=== PATIENT | male | born 1935 | race Caucasian/White ===

== ENCOUNTER 2017-04-05 19:58 | Emergency (ER) | payer MEDICARE ==
[2017-04-05] MEDS ORDERED: ACETAMINOPHEN TAB 500 MG TAB PO STA (21:05)
[2017-04-05] MEDS ORDERED: OSELTAMIVIR 75 MG CAP PO STA (21:51)
--- NOTE | 2017-04-05 22:08 | ED ---
General Adult HPI - General Chief complaint: Fever Stated complaint: Cough Time Seen by Provider: 04/05/17 20:25 Source: patient, family, RN notes reviewed Mode of arrival: ambulatory Limitations: no limitations - History of Present Illness Initial comments: Chief complaint and history of present illness is 89-year-old male here with his . The patient was sent in by his family doctor to be checked for the flu. The patient reports that for several days he had a sore throat and muscle aches pains sweats and fever for past 2 days. No nausea no vomiting - Related Data Home Medications Medication Instructions Recorded Confirmed Dapsone 50 mg PO DAILY 04/05/17 04/05/17 Levothyroxine Sodium [Synthroid] 50 mcg PO DAILY 04/05/17 04/05/17 Previous Rx's Medication Instructions Recorded Oseltamivir [Tamiflu] 75 mg PO Q12HR #10 cap 04/05/17 Allergies Allergy/AdvReac Type Severity Reaction Status Date / Time No Known Allergies Allergy Verified 04/05/17 20:21 Review of Systems ROS Statement: Those systems with pertinent positive or pertinent negative responses have been documented in the HPI. Review of systems. The patient did get a flu shot this year. He reports he has flu type symptoms for the past 2-3 days but a fever and chills for the past 2. Otherwise no chest pain no shortness of breath no GI/ problems no neuro deficits. All systems are reviewed. Past medical processing significant for GERD, and hypothyroidism. Surgeries include carpal tunnel surgery and back surgery. The patient nonsmoker nondrinker. Denies any ALLERGIES. He is intolerant to gluten. He takes medications for that. ROS Other: All systems not noted in ROS Statement are negative. Past Medical History Past Medical History: GERD/Reflux, Thyroid Disorder History of Any Multi-Drug Resistant Organisms: None Reported Additional Past Surgical History / Comment(s): back surgery, carpal tunnel Past Psychological History: No Psychological Hx Reported Smoking Status: Never smoker Past Alcohol Use History: None Reported Past Drug Use History: None Reported General Exam - General Exam Comments Initial Comments: General: The patient is awake and alert, here because of flu symptoms. Worse the past 2 days. Muscle aches and pains fever 101.6 dry cough. Vital signs shows temperature 101.6 pulse 83 respiratory rate 22 pulse ox 94% in room air blood pressure 131/66 Eye: Pupils are equal, round and reactive to light, extra-ocular movements are intact ; there is normal conjunctiva bilaterally. No signs of icterus. Ears, nose, mouth and throat: There are moist mucous membranes and no oral lesions. Neck: The neck is supple, Cardiovascular: There is a regular rate and rhythm. No murmur, rub or gallop is appreciated. Respiratory: Lungs are clear to auscultation, respirations are non-labored, breath sounds are equal. No wheezes, stridor, rales, or rhonchi. Complains of dry cough. Chest wall pain from coughing. Gastrointestinal: Soft, non-distended, non-tender abdomen without masses or organomegaly noted. There is no rebound or guarding present. No nausea no vomiting no diarrhea. Back: There is no tenderness to palpation in the midline. There is no obvious deformity. No rashes noted. Musculoskeletal: Normal, full range of motion upper and lower extremities. Neurological: No complaint of weakness or dizziness . Skin: Skin is warm and dry and no rashes or lesions are noted. Limitations: no limitations Course Vital Signs 04/05/17 20:06 Temperature 101.6 F H Pulse Rate 83 Respiratory 22 Rate Blood Pressure 131/66 O2 Sat by Pulse 94 L Oximetry Medical Decision Making - Medical Decision Making Medical decision making; is an 81-year-old male here with complaints of flu- type symptoms. Flu test was positive for influenza B. Chest x-ray was done and reviewed by radiologist's his final impression is; no active cardiopulmonary disease. As read by Dr. Sanchez. Due to the fact the patient has had a fever and chills most likely pain for 2 days. He will be continued on Tamiflu 75 mg twice a day for 5 days. Advised to use Tylenol or ibuprofen for fever or muscle aches and pains. Advised to follow-up with family physician. Certainly return emergency room if he has any worsening of his symptoms. - Lab Data Lab Results 04/05/17 Range/Units 21:08 Influenza Type A RNA Not Detected (Not Detectd) Influenza Type B (PCR) Detected H (Not Detectd) Disposition Clinical Impression: Influenza B Disposition: HOME SELF-CARE Condition: Fair Instructions: Influenza (ED) Additional Instructions: Increase fluids. Use Tylenol and ibuprofen muscle aches and pains and fever. Take Tamiflu twice daily for 5 days. Follow-up with family physician return emergency room as needed. Prescriptions: Oseltamivir [Tamiflu] 75 mg PO Q12HR #10 cap Referrals: Álvaro Dominguez MD [Primary Care Provider] - 1-2 days Time of Disposition: 22:48
--- NOTE | 2017-04-05 22:40 | XR ---
EXAMINATION TYPE: XR chest 2V DATE OF EXAM: 04/05/2017 COMPARISON: NONE HISTORY: Cough TECHNIQUE: Frontal and lateral views of the chest are obtained. FINDINGS: There is no heart failure nor confluent pneumonic infiltrate. Costophrenic angles are preston r. Thoracic aorta is atheromatous. Bony thorax appears intact. IMPRESSION: No active cardiopulmonary disease.
[2017-04-05 22:51] VITALS: BP 112/57; PULSE 67; RESP 18; TEMP 97.7
== END 2017-04-05 22:55 | disposition home or self-care (01) ==
LOC: EC 19:58
DX: J10.1 Influenza due to other identified influenza virus with other respiratory manifestations (principal); E03.9 Hypothyroidism, unspecified; Z79.899 Other long term (current) drug therapy
CPT/HCPCS: 71046; 87502; 99283

== ENCOUNTER → 2018-02-19 | Outpatient (CLI) | payer MEDICARE ==
--- NOTE | 2018-02-19 13:48 | BD ---
EXAMINATION TYPE: Axial Bone Density DATE OF EXAM: 02/19/2018 COMPARISON: NONE CLINICAL HISTORY: 82 YR OLD MALE.....ICD-10 CODE: M89.9 DISORDER OF BONE Height: 65. Weight: 145 FRAX RISK QUESTIONS: NOTHING TO NOTE HERE RISK FACTORS HISTORY OF: Active: YES MEDICATIONS: Thyroid Medications: YES, SYNTHROID, FOR ABOUT 3 YRS Additional Medications: VIT D, Additional History: RT TKR, EXAM MEASUREMENTS: Bone mineral densitometry was performed using the [employer] System. Bone mineral density as measured about the Lumbar spine is: ----- L1-L4(G/cm2): 1.144 T Score Values are as follows: ----- L1: -1.1 ----- L2: 1.4 ----- L3: -1.0 ----- L4: -0.3 ----- L1-L4: -0.3 Bone mineral density FIRST BONE DENSITY.....BASELINE STUDY Bone mineral density about the R hip (g/cm2): 0.750 Bone mineral density about the L hip (g/cm2): 0.768 T Score values are as follows: -----R Neck: -2.1 -----L Neck: -1.6 -----R Total: -2.0 -----L Total: -1.9 Bone mineral density BASELINE DEXA STUDY FRAX%s: THERE IS A 10.3% CHANCE FOR A MAJOR OSTEOPOROTIC FX AND A 4.7% FOR HIP.....PROBABILITY OF FX IN 10 YRS TIME IMPRESSION: Osteopenia lumbar spine. NOTE: T-SCORE=SD OF THE YOUNG ADULT MEAN.
== END ==
LOC: RADBDWWP 12:18
PROVIDERS: ATTEND Internal Medicine
DX: M85.88 Other specified disorders of bone density and structure, other site (principal)
CPT/HCPCS: 77080

== ENCOUNTER 2021-08-23 21:14 | Emergency (ER) | payer MEDICARE ==
[2021-08-23 21:27] VITALS: RESP 16; TEMP 97.9
[2021-08-23] MEDS ORDERED: KETOROLAC 15 MG/ML 1 ML VIAL IVP STA (21:36)
[2021-08-23] MEDS ORDERED: MORPHINE SULFATE 4 MG/ML SYRINGE IV STA (21:36)
--- NOTE | 2021-08-23 21:41 | ED ---
Back Pain HPI - General Chief Complaint: Extremity Problem,Nontraumatic Stated Complaint: right hip pain Time Seen by Provider: 08/23/21 21:27 Source: patient, EMS, RN notes reviewed - History of Present Illness Initial Comments: This is a pleasant 86-year-old male who presents to the emergency department complaining of pain in his left hip. Patient states he had a very active day. Patient states he was shoveling, lots of walking, swelling. Patient states he then went to dinner and noticed that he had pain in the posterior aspect of his left hip which radiates into the posterior aspect of the thigh. Pain is exacerbated by movement, pain sharp and shooting in nature. Patient is able to ambulate with antalgia. Pain does not go to the foot. No problems with bowel movements or urination. There was no direct trauma. Patient has normal renal suppression. Patient has had previous problems with lumbar radiculopathy although he has no back pain this time. No headache, no fever or chills, no changes in vision or hearing, no sore throat or difficulty with speech, no neck pain, no chest pain or shortness of breath, no abdominal pain, no nausea or vomiting, no changes in urination or bowel movements, no numbness or tingling, no skin rashes or lesions. MD Complaint: back pain - Related Data Home Medications Medication Instructions Recorded Confirmed Dapsone 100 mg PO DAILY 08/17/18 08/23/21 Levothyroxine Sodium [Synthroid] 75 mcg PO DAILY 08/17/18 08/23/21 Latanoprost/Pf [Latanoprost 0.005% 1 drop RIGHT EYE HS 08/23/21 08/23/21 Eye Drop] Previous Rx's Medication Instructions Recorded Cyclobenzaprine [Flexeril] 5 mg PO TID PRN #20 tablet 08/23/21 methylPREDNISolone Dose Pack 4 mg PO DIRECTED #21 tab 08/23/21 [Medrol Dose Pack] Allergies Allergy/AdvReac Type Severity Reaction Status Date / Time gluten Allergy Rash/Hives Verified 08/23/21 22:18 Review of Systems ROS Statement: Those systems with pertinent positive or pertinent negative responses have been documented in the HPI. ROS Other: All systems not noted in ROS Statement are negative. Past Medical History Past Medical History: GERD/Reflux, Thyroid Disorder History of Any Multi-Drug Resistant Organisms: None Reported Past Surgical History: Joint Replacement, Orthopedic Surgery Additional Past Surgical History / Comment(s): back surgery, carpal tunnel, right knee, Past Psychological History: No Psychological Hx Reported Past Alcohol Use History: None Reported Past Drug Use History: None Reported General Exam - General Exam Comments Initial Comments: 36-year-old male who appears stated age. No distress. Vital signs noted does not appear to be ill or toxic General appearance: alert, in no apparent distress Head exam: Present: atraumatic, normocephalic, normal inspection Eye exam: Present: normal appearance, PERRL, EOMI. Absent: scleral icterus, conjunctival injection, periorbital swelling ENT exam: Present: normal exam, mucous membranes moist Neck exam: Present: normal inspection. Absent: tenderness, meningismus, lymphadenopathy Respiratory exam: Present: normal lung sounds bilaterally. Absent: respiratory distress, wheezes, rales, rhonchi, stridor Cardiovascular Exam: Present: regular rate, normal rhythm, normal heart sounds. Absent: systolic murmur, diastolic murmur, rubs, gallop, clicks GI/Abdominal exam: Present: soft, normal bowel sounds. Absent: distended, tenderness, guarding, rebound, rigid Extremities exam: Present: normal inspection, full ROM (Left hip discomfort), tenderness (Patient has tenderness in the left sciatic notch), normal capillary refill, other (No erythema. No skin rash or lesion. No edema. Straight leg raise is equivocal). Absent: pedal edema, joint swelling, calf tenderness Back exam: Present: normal inspection, full ROM (With some discomfort in the left hip area). Absent: tenderness, CVA tenderness (R), CVA tenderness (L), muscle spasm, paraspinal tenderness, vertebral tenderness Neurological exam: Present: alert, oriented X3, CN II-XII intact, reflexes normal. Absent: normal gait (Antalgic) Psychiatric exam: Present: normal affect, normal mood Skin exam: Present: warm, dry, intact, normal color. Absent: rash Course Vital Signs 08/23/21 08/23/21 21:21 21:36 Temperature 97.9 F Pulse Rate 66 Respiratory 16 Rate Blood Pressure 165/89 145/70 O2 Sat by Pulse 95 Oximetry Medical Decision Making - Medical Decision Making The case was discussed in detail with ED attending physician. Presentation, findings, treatment plan discussed in detail. Patient symptomology consistent with sciatic nerve irritation on the left. Does not appear to be infectious in etiology. Patient has no bowel or bladder prongs. No symptoms of cauda equina syndrome. He is able to ambulate. Patient has significant improvement after initial pain medicine and anti-inflammatory medicine. I'm going to treat the patient a Medrol Dosepak and Flexeril. He can use [id number] Tylenol as well. Treatment plan discussed with the patient and his family member in detail. All questions answered. Patient concurs with this treatment plan. Patient's presentation is not consistent with an infectious process, not consistent with vascular etiology. Napper Tender Dr. De La Rosa Disposition Clinical Impression: Left sided sciatica Disposition: HOME SELF-CARE Condition: Good Instructions (If sedation given, give patient instructions): Sciatica (ED) Additional Instructions: Follow-up with orthopedic associates as directed. Call at 8 AM in the morning for follow-up appointment. You can continue [id number] acetaminophen for additional pain control. Follow-up with your regular physician as directed. Return to the ER immediately if any symptoms worsen, new symptoms arise, or any other problems develop. Prescriptions: Cyclobenzaprine [Flexeril] 5 mg PO TID PRN #20 tablet PRN Reason: Spasms methylPREDNISolone Dose Pack [Medrol Dose Pack] 4 mg PO DIRECTED #21 tab Is patient prescribed a controlled substance at d/c from ED?: No Referrals: Álvaro Dominguez MD [Primary Care Provider] - 1-2 days Tutu Walker MD [STAFF PHYSICIAN] - 08/27/21 Time of Disposition: 23:44
--- NOTE | 2021-08-23 23:43 | XR ---
EXAMINATION TYPE: XR Hip LT and AP Pelvis DATE OF EXAM: 08/23/2021 COMPARISON: NONE HISTORY: Pain TECHNIQUE: 3 view FINDINGS: The pelvic ring is intact. Proximal left femur and hip joint are intact. Sacroiliac joints are intact IMPRESSION: Negative pelvis and left hip exam.
[2021-08-24 00:17] VITALS: BP 134/70; PULSE 68
== END 2021-08-24 00:17 | disposition home or self-care (01) ==
LOC: EC 21:14
DX: M54.42 Lumbago with sciatica, left side (principal); E07.9 Disorder of thyroid, unspecified; Z91.018 Allergy to other foods; Z79.890 Hormone replacement therapy
CPT/HCPCS: 73502; 99283; 96374; 96375; J2270; J1885